=== PATIENT | female | born 1960 | race Caucasian/White ===

== ENCOUNTER → 2024-08-26 09:56 | Outpatient (BNVA) | payer OTHER, SELFPAY | PROVIDERS: PCP Internal Medicine ==

== ENCOUNTER 2024-12-07 09:15 | Outpatient (REF) | payer OTHER, SELFPAY ==
--- NOTE | ~2024-12-07 | XR_ITS ---
EXAMINATION: XR HAND 3 OR MORE VIEWS LEFT HISTORY: M79.642 - Pain in left hand COMPARISON: Correlation is made with plain films of the left wrist dated 08/06/2015. FINDINGS: Three views of the left hand are submitted. Osseous mineralization is normal. There is no fracture or dislocation. There is mild joint space narrowing involving the 4th and 5th PIP joints and the DIP joints. 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 The soft tissues are unremarkable. XR/XR hand LT min 3V IMPRESSION: Degenerative changes of the left hand as described. Electronically signed by: Ozzie Sharpe MD 12/07/2024 03:41 PM EST
--- NOTE | ~2024-12-07 | XR_ITS ---
EXAMINATION: XR ELBOW 3 VIEWS LEFT HISTORY: M25.522 - Pain in left elbow COMPARISON: Comparison is made with the prior examination dated 07/29/2015. FINDINGS: Three views of the left elbow are submitted. Osseous mineralization is normal. There is no fracture or dislocation. The joint spaces are preserved. The soft tissues are unremarkable. There is no joint effusion. XR/XR elbow LT min 3V IMPRESSION: Unremarkable examination of the left elbow. Electronically signed by: Ozzie Sharpe MD 12/08/2024 07:10 AM LITA
== END 2024-12-07 09:16 | disposition home or self-care (01) ==
LOC: HO.HOSX 09:15
PROVIDERS: PCP Internal Medicine
DX: R20.0 Anesthesia of skin (principal); R20.2 Paresthesia of skin; M25.642 Stiffness of left hand, not elsewhere classified; M25.632 Stiffness of left wrist, not elsewhere classified; M25.522 Pain in left elbow; M79.642 Pain in left hand
CPT/HCPCS: 73080; 73130; 99202

== ENCOUNTER → 2024-12-07 09:21 | Outpatient (BNV) | payer OTHER, SELFPAY | PROVIDERS: PCP Internal Medicine; Visit Provider Radiology Diagnostic Radiology | DX: M25.522 Pain in left elbow (principal) | CPT/HCPCS: 73080 ==